=== PATIENT | male | born 1980 | race African-American/Black ===

== ENCOUNTER 2017-05-22 11:46 | Emergency (ER) | payer MEDICAID ==
[~2017-05-22] VITALS: Ht 172.7 cm; Wt 77.1 kg
[2017-05-22 11:46] VITALS: BP 131/86
[2017-05-22] MEDS ORDERED: HYDROCODONE/APAP 5/325MG 1 EACH TABLET ONE (12:55)
[2017-05-22] MEDS ORDERED: IBUPROFEN 600 MG TABLET PO ONE ×2 (12:55→13:00)
[2017-05-22] MEDS ORDERED: HYDROCODONE/APAP 5/325MG 1 EACH TABLET PO ONE (13:00)
== END 2017-05-22 13:03 | disposition home or self-care (01) ==
LOC: ER 11:51
DX: S39.012A Strain of muscle, fascia and tendon of lower back, initial encounter (principal); V89.2XXA Person injured in unspecified motor-vehicle accident, traffic, initial encounter; Y93.89 Activity, other specified; Y92.488 Other paved roadways as the place of occurrence of the external cause; Y99.8 Other external cause status
CPT/HCPCS: 99283; A4606; Z7610

== ENCOUNTER 2017-06-10 14:05 | Emergency (ER) | payer MEDICAID ==
[~2017-06-10] VITALS: Ht 172.7 cm; Wt 77.1 kg
[2017-06-10 14:40] VITALS: BP 119/73
== END 2017-06-10 14:41 | disposition home or self-care (01) ==
LOC: ER 14:07
DX: S39.012A Strain of muscle, fascia and tendon of lower back, initial encounter (principal); F17.200 Nicotine dependence, unspecified, uncomplicated; V29.9XXA Motorcycle rider (driver) (passenger) injured in unspecified traffic accident, initial encounter; Y93.89 Activity, other specified; Y92.89 Other specified places as the place of occurrence of the external cause; Y99.8 Other external cause status
CPT/HCPCS: 99283; 99406; A4606; Z7610